=== PATIENT | female | born 1950 | race Caucasian/White ===

== ENCOUNTER → 2019-07-28 | Outpatient (CLI) | payer MEDICARE, OTHER ==
[2019-07-28 12:32] LABS: Basophils # (A) 0.1 k/uL (0-0.2); Basophils % (A) 2 %; Eosinophils # (A) 0.1 k/uL (0-0.7); Eosinophils % (A) 2 %; HCT 42.6 % (34.0-46.0); HGB 14.4 gm/dL (11.4-16.0); Lymphocytes # (A) 1.3 k/uL (1.0-4.8); Lymphocytes % (A) 18 %; MCH 29.4 pg (25.0-35.0); MCHC 33.8 g/dL (31.0-37.0); MCV 86.9 fL (80.0-100.0); Mean Platelet Volume 6.8; Monocytes # (A) 0.4 k/uL (0-1.0); Monocytes % (A) 6 %; Neutrophils # (A) 5.3 k/uL (1.3-7.7); Neutrophils % (A) 71 %; Platelet Count 363 k/uL (150-450); RDW 14.6 % (11.5-15.5); WBC 7.4 k/uL (3.8-10.6)
[2019-07-28 18:28] LABS: African American GFR (CKD) 66.1 (60.0-200.0); Albumin 4.7 g/dL (3.80-4.90); Albumin/Globulin Ratio 2.04 (1.60-3.17); Anion Gap 12.9 mmol/L (4.00-12.00); Calcium 9.6 mg/dL (8.7-10.3); Carbon Dioxide 25.1 mmol/L (21.6-31.8); Chol/HDL Ratio 3.2; Globulin 2.3 g/dL (1.6-3.3); LDL Cholesterol,Calculated 84.4 mg/dL (0.0-131.0); Potassium 3.8 mmol/L (3.5-5.5); Total Bilirubin 0.5 mg/dL (0.3-1.2); VLDL Calculation 25.6 mg/dL (5.00-40.00)
[2019-07-28 18:35] LABS: T4, Free (Free Thyroxine) 1.1 ng/dL (0.80-1.80)
== END | disposition home or self-care (01) ==
LOC: LABWHC1 11:59
PROVIDERS: ATTEND Family Medicine
DX: E78.00 Pure hypercholesterolemia, unspecified (principal); I10 Essential (primary) hypertension; E11.9 Type 2 diabetes mellitus without complications; Z91.09 Other allergy status, other than to drugs and biological substances
CPT/HCPCS: 36415; 80053; 80061; 84439; 84443; 85025

== ENCOUNTER → 2024-11-21 | Outpatient (CLI) | payer MEDICARE, OTHER ==
--- NOTE | 2024-11-21 17:00 | CA ---
Transthoracic Echo Report Name: Jodie Vieyra Age: 74 Gender: F : 1950 Exam Date: 11/21/2024 15:03 Exam Location: [facility] Ht (in): 65 Wt (lb): 175 Ordering Physician: Cornel Betts DO Attending/Referring Phys: Bety Dozier [facility] Water Filtration Technician Hattie Wilkerson RDCS Procedure CPT: Indications: R01.1 CARDIAC MURMUR, UNSPECIFIED Cardiac Hx: Technical Quality: Fair Contrast 1: Total Dose (mL): Contrast 2: Total Dose (mL): MEASUREMENTS (Male / Female) Normal Values 2D ECHO LV Diastolic Diameter PLAX 3.5 cm 4.2 - 5.9 / 3.9 - 5.3 cm LV Systolic Diameter PLAX 1.3 cm IVS Diastolic Thickness 1.1 cm 0.6 - 1.0 / 0.6 - 0.9 cm LVPW Diastolic Thickness 1.3 cm 0.6 - 1.0 / 0.6 - 0.9 cm LV Relative Wall Thickness 0.7 RV Internal Dim ED PLAX 1.1 cm LA Systolic Diameter LX 3.0 cm 3.0 - 4.0 / 2.7 - 3.8 cm M-MODE Aortic Root Diameter MM 3.1 cm LA Systolic Diameter MM 2.0 cm LA Ao Ratio MM 0.7 AV Cusp Separation MM 2.7 cm DOPPLER AV Peak Velocity 187.4 cm/s AV Peak Gradient 14.0 mmHg AV Mean Velocity 124.6 cm/s AV Mean Gradient 7.2 mmHg AV Velocity Time Integral 34.5 cm LVOT Peak Velocity 172.4 cm/s LVOT Peak Gradient 11.9 mmHg LVOT Velocity Time Integral 41.6 cm Mitral E Point Velocity 117.6 cm/s Mitral A Point Velocity 140.6 cm/s Mitral E to A Ratio 0.8 MV Deceleration Time 225.1 ms MV E' Velocity 10.7 cm/s Mitral E to MV E' Ratio 10.9 TR Peak Velocity 268.1 cm/s TR Peak Gradient 36.7 mmHg Right Atrial Pressure 5.0 mmHg Pulmonary Artery Systolic Pressu 33.8 mmHg Right Ventricular Systolic Press 33.8 mmHg PV Peak Velocity 255.7 cm/s PV Peak Gradient 26.1 mmHg RVOT Peak Velocity 209.0 cm/s RVOT Peak Gradient 17.5 mmHg FINDINGS Left Ventricle Left ventricular ejection fraction is estimated at 65-70%. Mildly increased septal wall thickness. Mildly increased posterior wall thickness. Left ventricular cavity size normal. Hyperdynamic left ventricular systolic function. Right Ventricle Normal right ventricular size and function. Mild pulmonary hypertension. Right ventricular systolic pressure estimated at 42mmHg. Right Atrium Mild right atrial dilatation. Left Atrium Moderate left atrial dilatation. Mitral Valve Structurally normal mitral valve. Mild mitral regurgitation. No mitral stenosis. Mitral annular calcification. Aortic Valve Trileaflet aortic valve. No aortic valve stenosis or regurgitation. Tricuspid Valve Structurally normal tricuspid valve. Mild tricuspid regurgitation. No tricuspid stenosis. Pulmonic Valve Turbulent systolic blood flow noted in the RVOT. Possibly RVOT obstruction versus VSD. Recommend DAVIAN or cardiac MRI to further evaluate. Pericardium No pericardial or pleural effusion. Aorta Normal size aortic root and proximal ascending aorta. CONCLUSIONS Left ventricular ejection fraction is estimated at 65-70% Mild mitral regurgitation. Mild tricuspid regurgitation. Turbulent systolic blood flow noted in the RVOT. Possibly RVOT obstruction versus VSD. Recommend DAVIAN or cardiac MRI to further evaluate. Previewed by: Dr. Will Iglesias DO (Electronically Signed) Final Date: 21 November 2024 17:00
== END | disposition home or self-care (01) ==
LOC: RADECHMAIN 14:55
PROVIDERS: ATTEND Family Medicine
DX: I08.1 Rheumatic disorders of both mitral and tricuspid valves (principal); R01.1 Cardiac murmur, unspecified; K31.84 Gastroparesis
CPT/HCPCS: 93306